=== PATIENT | male | born 1970 | race Caucasian/White ===

== ENCOUNTER → 2019-08-22 | Outpatient (CLI) | payer BC, OTHER ==
--- NOTE | 2019-08-22 07:53 | US ---
EXAMINATION TYPE: US kidneys/renal and bladder DATE OF EXAM: 08/22/2019 COMPARISON: NONE CLINICAL HISTORY: N28.9 Kidney Impairment. Left kidney underdeveloped since childhood EXAM MEASUREMENTS: Right Kidney: 13.4 x 7.3 x 4.5 cm Left Kidney: 9.7 x 2.8 x 3.1 cm Post Void Residual Volume: 8.7 mL Right Kidney: small calculus upper pole that is nonobstructing measuring 0.5 x 0.3 x 0.7 cm Left Kidney: 4 cortical medullary differentiation and cortical renal thinning. Atrophy. Questionable hypoechoic too small to accurately characterize lesion measuring 6 mm. Bladder: wnl Bilateral Jets seen: rt jet seen Normal Post Void Residual: Yes There is no evidence for hydronephrosis at this point in time. The urinary bladder is anechoic. Bila teral ureteral jets are not seen. IMPRESSION: 1. 7 mm nonobstructing right renal calculus. No hydronephrosis of either kidney. 2. Asymmetric size of the kidneys is known to the patient with atrophy since childhood on the left pe r patient history. Questionable subcentimeter too small to accurately characterize left renal lesion. 3. Sonographic sequela medical renal disease on the left with cortical thinning and diminished cortic al medullary differentiation.
[2019-08-22 14:19] LABS: Creatinine 24 Hour,Urine 1949.6 mg/24hr (1000.0-2000.0)
== END ==
LOC: RADUSWWP 06:37
PROVIDERS: ATTEND Family Medicine
DX: N20.0 Calculus of kidney (principal); N26.1 Atrophy of kidney (terminal); N28.9 Disorder of kidney and ureter, unspecified
CPT/HCPCS: 76770; 81050; 82575; 84156

== ENCOUNTER → 2020-04-06 | Outpatient (CLI) | payer BC ==
--- NOTE | 2020-04-06 09:58 | US ---
EXAMINATION TYPE: US kidneys/renal and bladder DATE OF EXAM: 04/06/2020 COMPARISON: NONE CLINICAL HISTORY: 49-year-old male N20.0 calculus of kidney. History of kidney stones, left kidney un derdeveloped since childhood TECHNIQUE: Multiple sonographic images of the kidneys and bladder are obtained. FINDINGS: EXAM MEASUREMENTS: Right Kidney: 13.8 x 5.1 x 5.6 cm Left Kidney: 10.3 x 4.4 x 4.2 cm Right Kidney: No hydronephrosis. Left Kidney: Smaller in size with thin renal cortex, areas of cortical irregularity such as at the lo wer pole, probable scarring. No hydronephrosis. Bladder: appears wnl Bilateral Jets seen: no Prostate gland enlargement 5.2 cm wide. IMPRESSION: 1. Atrophic left kidney with areas of cortical scarring. No hydronephrosis on either side. 2. Prostatomegaly of 5.2 cm wide.
== END | disposition home or self-care (01) ==
LOC: RADUSWWP 06:56
PROVIDERS: ATTEND Urology
DX: N26.1 Atrophy of kidney (terminal) (principal); N40.0 Benign prostatic hyperplasia without lower urinary tract symptoms; Z88.2 Allergy status to sulfonamides
CPT/HCPCS: 76770

== ENCOUNTER → 2021-11-29 | Outpatient (CLI) | payer BC | END | disposition home or self-care (01) | LOC: LABPAT 07:47 | PROVIDERS: ATTEND Surgery Plastic and Reconstructive Surgery | DX: Z20.822 Contact with and (suspected) exposure to COVID-19 (principal) | CPT/HCPCS: U0003; C9803; U0005 ==

== ENCOUNTER 2021-12-02 07:45 | Day surgery (SDC) | payer BC ==
[2021-11-29 15:41] VITALS: BMI 25.8
--- NOTE | 2021-12-02 07:40 | P.GSHP ---
History of Present Illness H&P Date: 12/02/21 CHIEF COMPLAINT: Colon screen HISTORY OF PRESENT ILLNESS: The patient is a 51-year-old female who presents for colon screen. Lower endoscopy was offered for further evaluation and management. PAST MEDICAL HISTORY: Please see list. PAST SURGICAL HISTORY: Please see list. MEDICATIONS: Please see list. ALLERGIES: Please see list. SOCIAL HISTORY: No illicit drug use FAMILY HISTORY: No reports of Crohn disease or ulcerative colitis. REVIEW OF ORGAN SYSTEMS: CONSTITUTIONAL: No reports of fevers or chills. PHYSICAL EXAM: VITAL SIGNS: Stable GENERAL: Well-developed pleasant in no acute distress. HEENT: No scleral icterus. Extraocular movements grossly intact. Moist buccal mucosa. NECK: Supple without lymphadenopathy. CHEST: Unlabored respirations. Equal bilateral excursions. CARDIOVASCULAR: Regular rate and rhythm. Distal 2+ pulses. ABDOMEN: Soft, nontender, nondistended. MUSCULOSKELETAL: No clubbing, cyanosis, or edema. ASSESSMENT: 1. Colon screen. PLAN: 1. Recommend proceeding with a lower endoscopy Past Medical History Additional Past Medical History / Comment(s): PAST HX KIDNEY STONES. UNDERDEVELOPED LT KIDNEY History of Any Multi-Drug Resistant Organisms: None Reported Past Surgical History: Orthopedic Surgery Additional Past Surgical History / Comment(s): RT COLLARBONE RESCONTRUCTIONS. EXP. LAP R/T KIDNEY ISSUES Past Anesthesia/Blood Transfusion Reactions: No Reported Reaction Smoking Status: Former smoker - Past Family History Father Family Medical History: Cancer Medications and Allergies Home Medications Medication Instructions Recorded Confirmed Type No Known Home Medications 11/29/21 11/29/21 History Allergies Allergy/AdvReac Type Severity Reaction Status Date / Time Sulfa (Sulfonamide Allergy Rash/Hives Verified 11/29/21 15:36 Antibiotics)
[~2021-12-02 07:45] MED LIST: LACTATED RINGERS 1,000 ML IV SCH
[2021-12-02 08:01] VITALS: RESP 16; TEMP 97.2
[2021-12-02] MEDS ORDERED: PROPOFOL 10 MG/ML 20 ML VIAL IV ONE (08:40)
[2021-12-02] MEDS ORDERED: LIDOCAINE 1% INJ 10MG/ML (20 ML MDV) ONE (08:40)
--- NOTE | 2021-12-02 09:09 | P.PCN ---
Date of Procedure: 12/02/21 Description of Procedure: PREOPERATIVE DIAGNOSIS: Colonoscopy screening POSTOPERATIVE DIAGNOSIS: Tubular adenoma sigmoid colon Sigmoid diverticulosis Internal hemorrhoids, grade 2 OPERATION: Colonoscopy to the ileocecal valve and appendiceal orifice, cecum Colonoscopy with hot snare polypectomy SURGEON: Yolanda Conner MD. ANESTHESIA: MAC. INDICATIONS: The patient is an 51-year-old male who presents for colon screening. Benefits and risks were described and informed consent was obtained. DESCRIPTION OF PROCEDURE: The patient had undergone Sutab prep. The patient had been brought into the operating room and laid in the left lateral decubitus position. After adequate intravenous sedation, the rectum was examined with 2% lidocaine jelly. The prostate was unremarkable. External hemorrhoids were encountered. The rectal tone was within normal limits. No lesions were palpated in the rectal vault. An Olympus colonoscope was advanced until the cecum, ileocecal valve and appendiceal orifice were clearly viewed. The prep was excellent. Sigmoid diverticulosis was encountered. Colonic polyps were found and removed. No evidence of focal colitis was found. Retroflexion of the scope demonstrated grade 2 internal hemorrhoids without active bleeding or inflammation. The colon was desufflated. The patient had tolerated the procedure well. Withdrawal time was over 6 minutes. FINDINGS: Aronchick preparation quality scale 1 (1-5) Internal hemorrhoids, grade 2 External hemorrhoids, grade 2 No arteriovenous malformations. Sigmoid diverticulosis Removal of 1 polyp: - Snare polypectomy at midtransverse colon, 5 mm tubulovillous adenoma polyp. No focal colitis. RECOMMENDATIONS: Repeat colonoscopy in 3 years2024 Plan - Discharge Summary Discharge Rx Participant: No New Discharge Prescriptions: No Action No Known Home Medications Discharge Medication List No Known Home Medications 11/29/21 [History] Follow up Appointment(s)/Referral(s): Yolanda Conner MD [STAFF PHYSICIAN] - As Needed Patient Instructions/Handouts: Diverticulosis (ED), Diverticulosis Diet (GEN), Colorectal Polyps (GEN) Activity/Diet/Wound Care/Special Instructions: Repeat colonoscopy in 3 years2024 Discharge Disposition: HOME SELF-CARE
[2021-12-02 09:22] VITALS: BP 113/77; PULSE 63
== END 2021-12-02 09:44 | disposition home or self-care (01) ==
LOC: ORWHC2ENDO 07:45
PROVIDERS: ATTEND Surgery Plastic and Reconstructive Surgery
DX: Z12.11 Encounter for screening for malignant neoplasm of colon (principal); D12.3 Benign neoplasm of transverse colon; K57.30 Diverticulosis of large intestine without perforation or abscess without bleeding; K64.4 Residual hemorrhoidal skin tags; K64.1 Second degree hemorrhoids; Z87.442 Personal history of urinary calculi; Q60.3 Renal hypoplasia, unilateral; Z98.890 Other specified postprocedural states; Z87.891 Personal history of nicotine dependence; Z80.9 Family history of malignant neoplasm, unspecified; Z88.2 Allergy status to sulfonamides
CPT/HCPCS: 88305; 45385; J2001; J2704

== ENCOUNTER → 2024-06-27 | Outpatient (CLI) | payer BC ==
--- NOTE | 2024-07-24 15:26 | US ---
Patient: Pedro Durand Ordering Physician: Unknown, Unknown ID: [id number]/ Phone, Pager: Phone: N/A Pager: N/A : 1970 Age/Gender: 53Y, M Primary Location: N/A Procedure: US RENAL Study Sloan e: 06/27/2024 7:19:00 AM EXAMINATION TYPE: US renals and bladder DATE OF EXAM: 06/27/2024 COMPARISON: NONE CLINICAL INDICATION: Unknown, old with history of ; History of left kidney surgery, underactive left kidney since childhood Right Kidney - 8mm echogenic focus superior pole Left Kidney - smaller in size compared to right kidney, irregular shaped, thin cortex, 4cm cystic are a inferior pole Bladder - appears wnl, right jet seen, left jet not seen Right kidney 13.3 x 6.1 x 6.3 cm Left kidney 10.1 x 4.5 x 4.3 cm IMPRESSION: 1 nephrolithiasis right kidney. 2. Diminutive left kidney relative to its right-sided counterpart. 4 cm cyst left kidney.
== END | disposition home or self-care (01) ==
LOC: RADUSWWP 11:04
PROVIDERS: ATTEND Nurse Practitioner Adult Health
DX: N18.2 Chronic kidney disease, stage 2 (mild) (principal); N20.0 Calculus of kidney
CPT/HCPCS: 76770

== ENCOUNTER 2025-02-27 11:16 | Day surgery (SDC) | payer BC ==
[2025-02-21 13:20] VITALS: BMI 26.3
--- NOTE | 2025-02-27 08:10 | P.GSHP ---
History of Present Illness H&P Date: 02/27/25 CHIEF COMPLAINT: Colon screen HISTORY OF PRESENT ILLNESS: The patient is a 54-year-old male who presents for colon screen. Lower endoscopy was offered for further evaluation and management. PAST MEDICAL HISTORY: Please see list. PAST SURGICAL HISTORY: Please see list. MEDICATIONS: Please see list. ALLERGIES: Please see list. SOCIAL HISTORY: No illicit drug use FAMILY HISTORY: No reports of Crohn disease or ulcerative colitis. REVIEW OF ORGAN SYSTEMS: CONSTITUTIONAL: No reports of fevers or chills. PHYSICAL EXAM: VITAL SIGNS: Stable GENERAL: Well-developed pleasant in no acute distress. HEENT: No scleral icterus. Extraocular movements grossly intact. Moist buccal mucosa. NECK: Supple without lymphadenopathy. CHEST: Unlabored respirations. Equal bilateral excursions. CARDIOVASCULAR: Regular rate and rhythm. Distal 2+ pulses. ABDOMEN: Soft, nontender, nondistended. MUSCULOSKELETAL: No clubbing, cyanosis, or edema. ASSESSMENT: 1. Colon screen. PLAN: 1. Recommend proceeding with a lower endoscopy Past Medical History Additional Past Medical History / Comment(s): PAST HX KIDNEY STONES. UNDERDEVELOPED LT KIDNEY History of Any Multi-Drug Resistant Organisms: None Reported Past Surgical History: Orthopedic Surgery Additional Past Surgical History / Comment(s): RT COLLARBONE RESCONTRUCTIONS. EXP. LAP R/T KIDNEY ISSUES Past Anesthesia/Blood Transfusion Reactions: No Reported Reaction Additional Past Anesthesia/Blood Transfusion Reaction / Comment(s): no blood transfusion Smoking Status: Former smoker - Past Family History Father Family Medical History: Cancer Additional Family Medical History / Comment(s): lung Medications and Allergies Home Medications Medication Instructions Recorded Confirmed Type No Known Home Medications 11/29/21 02/21/25 History Allergies Allergy/AdvReac Type Severity Reaction Status Date / Time Sulfa (Sulfonamide Allergy Rash/Hives Verified 02/21/25 13:14 Antibiotics)
[~2025-02-27 11:16] MED LIST changes: -LACTATED RINGERS 1,000 ML IV SCH; +LIDOCAINE 1% (10MG/ML) FOR IV START INTRADERMA PRN
[2025-02-27] MEDS: IV FLUID CONTINUATION 1,000 ML IV ONE (11:49)
[2025-02-27 12:06] VITALS: TEMP 98
[2025-02-27] MEDS: LACTATED RINGERS 1,000 ML IV SCH (12:07)
[2025-02-27] MEDS ORDERED: PROPOFOL 10 MG/ML 20 ML VIAL IV ONE (12:29)
[2025-02-27] MEDS ORDERED: LIDOCAINE 1% INJ 10MG/ML (20 ML MDV) ONE (12:29)
--- NOTE | 2025-02-27 13:06 | P.PCN ---
Date of Procedure: 02/27/25 Description of Procedure: PREOPERATIVE DIAGNOSIS: History of polyps Colonoscopy screening. POSTOPERATIVE DIAGNOSIS: Colonoscopy screening. Diverticulosis, scattered. OPERATION: Colonoscopy to the cecum, ileocecal valve and appendiceal orifice. SURGEON: Yolanda Conner MD. ANESTHESIA: MAC. INDICATIONS: The patient is a 54-year-old male who presents for colonoscopy screening. Benefits and risks were described and informed consent was obtained. DESCRIPTION OF PROCEDURE: The patient had undergone Suprep. The patient had been brought into the operating room and laid in the left lateral decubitus position. After adequate intravenous sedation, the rectum was examined with 2% lidocaine jelly. No external hemorrhoids were encountered. The rectal tone was within normal limits. No lesions were palpated in the rectal vault. An Olympus colonoscope was advanced until the cecum, ileocecal valve and appendiceal orifice were clearly viewed. The prep was excellent. Scattered diverticulosis was encountered. No colonic polyps were found. No evidence of focal colitis was found. Retroflexion of the scope demonstrated grade 1 internal hemorrhoids without active bleeding or inflammation. The colon was desufflated. The patient had tolerated the procedure well. Withdrawal time was over 6 minutes. FINDINGS: Aronchick preparation quality scale 1 (1-5) Internal hemorrhoids, grade 1 No external prolapsed hemorrhoids. No arteriovenous malformations. No adenomatous polyps. No focal colitis. Highly redundant sigmoid colon requiring abdominal wall pressure RECOMMENDATIONS: Lower endoscopy 5 years2029 Plan - Discharge Summary Discharge Rx Participant: No New Discharge Prescriptions: No Action No Known Home Medications Discharge Medication List No Known Home Medications 11/29/21 [History] Follow up Appointment(s)/Referral(s): Yolanda Conner MD [STAFF PHYSICIAN] - As Needed Patient Instructions/Handouts: Diverticulosis Diet (GEN) Activity/Diet/Wound Care/Special Instructions: Repeat colonoscopy 5 years, 2029 Discharge Disposition: HOME SELF-CARE
[2025-02-27 13:27] VITALS: BP 116/78; PULSE 67; RESP 18
== END 2025-02-27 13:40 | disposition home or self-care (01) ==
LOC: ORWHC2ENDO 11:16
PROVIDERS: ATTEND Surgery Plastic and Reconstructive Surgery
DX: Z12.11 Encounter for screening for malignant neoplasm of colon (principal); K64.0 First degree hemorrhoids; K63.89 Other specified diseases of intestine; Z86.0100 Personal history of colon polyps, unspecified; Z87.891 Personal history of nicotine dependence; Z87.442 Personal history of urinary calculi; Z98.890 Other specified postprocedural states; Z88.2 Allergy status to sulfonamides
CPT/HCPCS: 45378; J2003; J2704